=== PATIENT | male | born 1980 | race Caucasian/White ===

== ENCOUNTER → 2017-03-15 | Outpatient (CLI) | payer BC, SELFPAY ==
--- NOTE | 2017-03-15 13:14 | CT ---
EXAM DESCRIPTION: Abdomen/Pelvis w/wo Contrast CLINICAL HISTORY: 37 years Male, abdominal pain with some flank pain COMPARISON: None. TECHNIQUE: CT of the abdomen and pelvis was performed with and without IV contrast. Multiple axial images and multiplanar reconstructions were generated. This exam was performed according to our department minimal dose optimization program which includes automated exposure control, adjustment of mA and/or kV according to patient size and/or use of iterative reconstructed techniques. FINDINGS: Lung bases: The visualized lung bases are clear. Solid organs: The spleen, pancreas, kidneys, and adrenal glands are normal. 2 small subcentimeter liver cysts noted. These are benign. Gastrointestinal: Mild diverticulitis of the sigmoid colon noted with inflammatory changes seen within the left lower quadrant. The small bowel is unremarkable. Gallbladder is unremarkable. The appendix is normal. No free fluid or free air. Vascular: Normal. Lymph nodes: No pathologically enlarged lymph nodes are present by CT size criteria. Musculoskeletal and soft tissues: No destructive osseous lesions are present. Urinary bladder and pelvic organs: The urinary bladder is normal. Prostate is enlarged measuring 5.2 cm. IMPRESSION: 1. Today's exam demonstrates benign appearing hepatic cysts. 2. There is also evidence of very mild sigmoid diverticulitis without evidence of abscess formation or perforation. Electronically signed by: Mario Renee MD 03/15/2017 1:13 PM CDT
== END | disposition home or self-care (01) ==
LOC: CT 09:02
PROVIDERS: ATTEND Nurse Practitioner Family
DX: R10.9 Unspecified abdominal pain (principal)